=== PATIENT | female | born 1950 | race Caucasian/White ===

== ENCOUNTER 2021-11-03 14:18 | Outpatient (REF) | payer MEDICARE, MEDICAID, SELFPAY ==
[2021-11-03 18:10] LABS: Alanine Aminotransferase 10 U/L (0-31); Albumin Level 4.1 g/dL (3.5-5.0); Alkaline Phosphatase 68 U/L (39-117); Anion Gap 11 (12-20); Aspartate Amino Transferase 19 U/L (5-31); Bilirubin Total 0.7 mg/dL (0.0-1.0); Blood Urea Nitrogen 19 mg/dL (9-16); Calcium 9.5 mg/dL (8.4-10.2); Carbon Dioxide 32 mmol/L (22-29); Chloride 105 mmol/L (96-108); Estimated Glomerular Filt Rate 36; Glucose Random 85 mg/dL (60-115); Potassium 4.9 mmol/L (3.3-5.1); Sodium 143 mmol/L (135-145); Total Protein 6.2 g/dL (6.5-8.0)
[2021-11-03 18:23] LABS: Hematocrit 43.3 % (37.0-47.0); Mean Corpuscular HGB Conc 32.3 g/dl (31.0-35.0); Mean Corpuscular Hemoglobin 33.1 pg (27.0-33.0); Mean Corpuscular Volume 102.4 fL (80.0-98.0); Mean Platelet Volume 11.5 fL (9.4-12.3); Platelet Count 156 X10*3/uL (160-400); Red Blood Count 4.23 X10*6/uL (4.20-5.50); White Blood Count 4.5 X10*3/uL (4.8-10.8)
[2021-11-03 18:29] LABS: Vitamin D 25-OH Total 40.9 ng/mL (>30)
[2021-11-03 18:36] LABS: Vitamin B12 536 pg/mL (200-900)
== END 2021-11-03 14:19 | disposition home or self-care (01) ==
LOC: HO.MANLDS 14:18
PROVIDERS: PCP Internal Medicine; Visit Provider Internal Medicine
DX: I10 Essential (primary) hypertension (principal); Z76.89 Persons encountering health services in other specified circumstances
CPT/HCPCS: 36415; 80053; 82306; 82607; 85027

== ENCOUNTER 2023-09-23 08:38 | Outpatient (REF) | payer MEDICARE, MEDICAID, SELFPAY ==
[2023-09-23 13:13] LABS: MANUAL DIFF FLAG NO
[2023-09-23 13:29] LABS: Basophils Percent Auto 0.6 % (0-2); Eosinophils Absolute Auto 0.2 X10*3/uL (0.0-0.4); Eosinophils Percent Auto 3.2 % (0-4); Hematocrit 45.2 % (37.0-47.0); Hemoglobin 14.5 g/dl (12.0-16.0); Imm Gran Abs Auto 0.01 X10*3/uL (0.00-0.03); Imm Gran Pct Auto 0.2 % (0.0-0.4); Lymphocytes Percent Auto 20.6 % (20-40); Mean Corpuscular HGB Conc 32.1 g/dl (31.0-35.0); Mean Corpuscular Hemoglobin 33.4 pg (27.0-33.0); Mean Corpuscular Volume 104.1 fL (80.0-98.0); Monocytes Absolute Auto 0.4 X10*3/uL (0.1-1.2); Monocytes Percent Auto 8.5 % (2-11); Neutrophils Absolute Auto 3.3 x10*3/uL (2.0-8.3); Neutrophils Percent Auto 66.9 % (45-73); Platelet Count 155 X10*3/uL (160-400); Red Blood Count 4.34 X10*6/uL (4.20-5.50)
[2023-09-23 13:49] LABS: Alanine Aminotransferase 11 U/L (0-31); Albumin Level 4.1 g/dL (3.5-5.0); Alkaline Phosphatase 68 U/L (39-117); Anion Gap 12 (12-20); Aspartate Amino Transferase 20 U/L (5-31); Bilirubin Total 0.8 mg/dL (0.0-1.0); Blood Urea Nitrogen 20 mg/dL (9-16); Calcium 9.8 mg/dL (8.4-10.2); Carbon Dioxide 30 mmol/L (22-29); Chloride 104 mmol/L (96-108); Cholesterol 185 mg/dL (<200); Estimated Glomerular Filt Rate 38; Glucose Random 85 mg/dL (60-115); HDL Cholesterol 76 mg/dL (>40); LDL Cholesterol Calculated 95 mg/dL (<100); Potassium 3.7 mmol/L (3.3-5.1); Sodium 142 mmol/L (135-145); Total Protein 6.5 g/dL (6.5-8.0); Triglycerides 73 mg/dL (<150)
[2023-09-23 14:07] LABS: Vitamin B12 1035 pg/mL (200-900)
== END 2023-09-23 08:39 | disposition home or self-care (01) ==
LOC: HO.MANLDS 08:38
PROVIDERS: Visit Provider Internal Medicine
DX: E53.8 Deficiency of other specified B group vitamins (principal); I10 Essential (primary) hypertension
CPT/HCPCS: 36415; 80053; 80061; 82607; 85025

== ENCOUNTER 2025-02-06 14:26 | Outpatient (REF) | payer MEDICARE, MEDICAID, SELFPAY ==
--- OUTSIDE RECORDS SUMMARY | 2025-02-06 16:36 | XMS_ITS | Data Portability ---
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 2 OUT OF 3 ELEMENTS: PROBLEMS, DATA OR RISK ELEMENT 1: PROBLEMS ADDRESSED 1 OR MORE CHRONIC ILLNESS WITH EXACERBATION OR 2 OR MORE STABLE CHRONIC ILLNESSES OR 1 UNDIAGNOSED NEW PROBLEM OR 1 ACUTE ILLNESS W/SYMPTOMS OR 1 ACUTE COMPLICATED INJURY ELEMENT 2: DATA MUST MEET 1 OF 3 CATEGORIES CATEGORY 1: REVIEW OF PRIOR EXTERNAL NOTES, REVIEW OF RESULTS, ORDERING OF EACH TEST, ASSESSMENT REQUIRING INDEPENDENT HISTORIAN OR CATEGORY 2: INDEPENDENT INTERPRETATION OF TESTS BY ANOTHER PHYSICIAN OR SPECIALIST OR CATEGORY 3: DISCUSSION OF MGT OR TEST INTERPRETATION W/EXTERNAL PHYSICIAN OR SPECIALIST ELEMENT 3: RISK RISK OF COMPLICATIONS AND/OR MORBIDITY OR MORTALITY OF PATIENT MANAGEMENT PROVIDER MUST THOROUGHLY DOCUMENT EACH ELEMENT THAT IS COVERED Not available 11/07/2024 11:23:22 02/06/2025 02/06/2025 [id number] [place] [id number] (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 2 OUT OF 3 ELEMENTS: PROBLEMS, DATA OR RISK ELEMENT 1: PROBLEMS ADDRESSED 1 OR MORE CHRONIC ILLNESS WITH EXACERBATION OR 2 OR MORE STABLE CHRONIC ILLNESSES OR 1 UNDIAGNOSED NEW PROBLEM OR 1 ACUTE ILLNESS W/SYMPTOMS OR 1 ACUTE COMPLICATED INJURY ELEMENT 2: DATA MUST MEET 1 OF 3 CATEGORIES CATEGORY 1: REVIEW OF PRIOR EXTERNAL NOTES, REVIEW OF RESULTS, ORDERING OF EACH TEST, ASSESSMENT REQUIRING INDEPENDENT HISTORIAN OR CATEGORY 2: INDEPENDENT INTERPRETATION OF TESTS BY ANOTHER PHYSICIAN OR SPECIALIST OR CATEGORY 3: DISCUSSION OF MGT OR TEST INTERPRETATION W/EXTERNAL PHYSICIAN OR SPECIALIST ELEMENT 3: RISK RISK OF COMPLICATIONS AND/OR MORBIDITY OR MORTALITY OF PATIENT MANAGEMENT PROVIDER MUST THOROUGHLY DOCUMENT EACH ELEMENT THAT IS COVERED Not available 02/06/2025 14:16:56 Plan of Treatment Reminders Order Date Submit Date Provider Last Modified By Organization Details Last Modified Time Details Appointments FOLLOW UP 2024 01:45P M DR INFANTE Not available Not available Not available Nurse Visit 2024 10:00A M [facility] Not available Not available Not available FOLLOW UP 2024 02:15P M DR INFANTE Not available Not available Not available Lab CMP, serum or plasma 2024 025 [facility], [address] [place] [address], [id number], 02/06/2025 14:24:27 vitamin D, 25-hydrox y, total, serum 2024 025 [facility], [address] [place] [address], [id number], 02/06/2025 14:24:27 CBC w/ auto diff 2024 025 [facility], [address] [place] [address], [id number], 02/06/2025 14:24:27 CBC 2024 025 [facility], [address] [place] [address], [address], 02/06/2025 14:24:49 ferritin, serum or plasma 2024 025 [facility], [address] [place] [address], [address], 02/06/2025 14:24:48 folate, serum 2024 025 [facility], [address] [place] [address], [id number], 02/06/2025 14:24:48 iron + total iron-bind ing capacity (TIBC), serum 2024 025 [facility], [address] [place] [address], [address], 02/06/2025 14:24:48 retic count, blood 2024 025 [facility], [address] [place] [address], [place], [address], 02/06/2025 14:24:48 vitamin B12, serum 2024 025 [facility], [address] [place] [address], [address], 02/06/2025 14:24:48 vitamin B12, serum 2024 025 [facility], [address] [place] [address], [address], 02/06/2025 14:24:27 Referral None recorded. Procedures None recorded. Surgeries None recorded. Imaging MAMMO, screening , digital, bilateral [address] [place] [address] (Screening Mammos, 6-Mos F-Up, Breast Procedures), [address] [place] [address], [id number], 02/06/2025 15:30:09 bone density [address] [place] [address] (Screening Mammos, 6-Mos F-Up, Breast Procedures), [address] [place] [address], [address], 02/06/2025 15:30:09 Medication Orders hydrocodo ne 7.5 mg-acetam inophen 325 mg tablet 2024 025 [facility]/Pharmacy #2024, [address] [place], [address], 02/06/2025 14:18:15 cyanocoba (vit B-12) 1,000 mcg/mL injection solution 2024 025 [facility]/Pharmacy #2024, [address] [place], [address], 01/30/2025 10:22:35 Vitamin B-12 1,000 mcg/mL injection solution 2024 025 [facility]2024, [address] [place], [address], 01/02/2025 09:59:02 Vitamin B-12 1,000 mcg/mL injection solution 2024 025 [facility], [address] [place], [address], 12/03/2024 11:00:06 Patient TargetsNo targets recorded. Patient Instructions Encounter Date Encounter Id Patient Instructions Last Modified By Organization Details Last Modified Time 11/07/2024 [id number] high blood pressure: care instructions Not available 11/07/2024 11:22:26 learning about high blood pressure Not available 11/07/2024 11:22:26 02/06/2025 [id number] mammogram: about this test Not available 02/06/2025 14:23:24 Reason for Referral None Reported. Problems Name Problem SNOMED Code Status Onset Date Resolution Date Notes Provider Name and Address Organization Details Recorded Time Degenera tion of lumbar interver tebral disc and osteophy te of lumbar vertebra 392589374 Completed 201803/09/2019 Harish Infante DO [address] [place] [address], [address], [facility] 9 14:23:47 Degenera tion of lumbar interver tebral disc 92900912 Active 2018 Dinah boykin [facility] 5 08:22:47 Osteoart hritis of knee 998763520 Active 2020 Harish Infante DO [address] [place] [address], [address], [facility] 1 13:47:58 Environm ental allergy 082894327 Active 2017 Dinah boykin [facility] 5 08:22:47 [facility] l hyperten martinez 93348318 Active 2017 [facility] 5 08:22:47 Migraine 60655901 Active 2017 [facility] 5 08:22:47 History of depressi on 373127496 Active 2017 [facility] 5 08:22:47 Gastroes ophageal reflux disease 897823750 Active 2017 [facility] 5 08:22:47 Osteoart hritis 455659863 Active 2017 L shoulder , Knees bilatera l and lumbar spine Dinah Drew [facility] 5 08:22:47 Cataract 174496933 Active 2017 Dinahjennifer Rubin [facility] 5 08:22:47 Osteopen ia 127750517 Active 2017 LS Spine, L hip Dinah Rubin [facility] 5 08:22:47 Hiatal hernia 35669324 Active 2017 Dinahjennifer Rubin [facility] 5 08:22:47 B12 deficien cy monitori ng status 454077932 Active 2017 Dinahjennifer Rubin [facility] 5 08:22:47 Cobalami n deficien cy 072972661 Active 2021 [facility] 5 08:22:47 Gastropa resis syndrome 185932899 Active 2017 Dinahjennifer Rubin [facility] 5 08:22:47 Onychomy cosis 452494994 Active 2021 Harish Infante, DO [address] [place] [address], [place], [address], [facility] 2 14:53:06 Mood disorder 34247284 Active 2022 Dinah boykin, [facility] 5 08:22:47 Acute diarrhea 273110186 Active 2022 Dinah boykin, [facility] 5 08:22:53 Vitamin D deficien cy 10751970 Active 2022 [facility] 5 08:22:47 Osteoart hritis of right knee joint 4758767923 37019 Active 2023 Dinah boykin, [facility] 5 08:22:47 Pneumoni a 471496676 Active 2023 [facility] 5 08:22:53 Atypical pneumoni a 289055135 Active 2023 [facility] 5 08:22:53 Reactive airway disease 1321830174 06 Active 2024 Harish Infante DO [address] [place] [address], [address], [facility] 5 11:20:48 Insomnia 016719588 Active 2017 Not Available [facility] 1 11:19:05 Cellulit is of upper limb 934950771 Active 2017 [facility] 5 08:22:53 Problem Notes None recorded. Procedures Surgical History Date Name Laterality Status Provider Name and Address Organization Details Recorded Time 024 Corticosteroid Injection completed Harish Infante DO [address] [place] [address], [phone], [facility] 09/27/2023 11:08:44 021 Corticosteroid Injection completed Harish Infante DO [address] [place] [address], [address], [facility] 07/06/2021 14:01:24 020 Corticosteroid Injection completed Harish Infante DO [address] [place] [address], [address], [facility] 07/07/2020 15:01:35 020 Corticosteroid Injection completed Harish Infante DO [address] [place], [address], [facility] 12/21/2019 10:31:18 018 Corticosteroid Injection completed Harish Infante DO [address] [place], [address], [facility] 07/24/2018 12:30:11 Imaging Results None recorded. Procedure Notes None recorded. Medical Equipment None Reported. Allergies Allergen ID Allergen Name Allergen Category Reaction Reaction Severity Criticality Documentation Date Start Date Code Code System Note Provider Name and Address Organization Details Recorded Time 84 penicilli n V Not available Not available Not available Not available 10/26/2017 7984 RxNorm [facility] 8 15:05:27 Medications Name Sig Start Date Stop Date Status Note LastModified by Organization Details LastModified Time celecoxib 200 mg capsule TAKE 1 CAPSULE BY MOUTH EVERY DAY active Not Available Not Available No t Available cyclobenzap rine 10 mg tablet TAKE 1 TABLET BY MOUTH THREE TIMES DAILY FOR 10 DAYS 03/16 completed Not Available Not Available Not Available propranolol ER 160 mg capsule,24 hr,extended release TAKE 1 CAPSULE BY MOUTH EVERY DAY 11/07 completed Not Available Not Available Not Available azithromyci n 250 mg tablet Take 1 dose pk by oral route as directed for 5 days. 11/07 completed Not Available Not Available Not Available hydrocodone 5 mg-acetamin ophen 325 mg tablet Take 1 tablet twice a day by oral route. 11/28 completed Not Available Not Available Not Available ondansetron HCl 8 mg tablet TAKE 1 TABLET BY MOUTH TWICE DAILY 06/27 completed Not Available Not Available Not Available meloxicam 15 mg tablet TAKE 1 TABLET BY MOUTH EVERY DAY 02/06 completed Not Available Not Available Not Available metoprolol succinate ER 100 mg tablet,exte nded release 24 hr TAKE 1 TABLET BY MOUTH EVERY DAY active Not Available Not Available No t Available ciprofloxac in 250 mg tablet TAKE 1 TABLET BY MOUTH EVERY 12 HOURS FOR 5 DAYS 06/27 completed Not Available Not Available Not Available sulfamethox azole 800 mg-trimetho prim 160 mg tablet Take 1 tablet every 12 hours by oral route for 10 days. 03/31 completed Not Available Not Available Not Available hydrocodone 10 mg-acetamin ophen 325 mg tablet TAKE 1 TABLET BY MOUTH TWICE DAILY 11/28 completed Not Available Not Available Not Available trazodone 100 mg tablet TAKE 1 TABLET BY MOUTH EVERYDAY AT BEDTIME active Not Available Not Available No t Available hydrocodone 7.5 mg-acetamin ophen 325 mg tablet TAKE 1 TABLET BY MOUTH THRICE DAILY NEEDED (tid prn) 2024 active Not Available Not Available Not Avai lable pantoprazol e 40 mg tablet,jani yed release TAKE 1 TABLET BY MOUTH EVERY DAY active Not Available Not Available No t Available cyanocobala min (vit B-12) 1,000 mcg/mL injection solution Inject 1 mL every month by subcutane ous route. 2024 active Not Available Not Available Not Avai lable lisinopril 10 mg tablet TAKE 1 TABLET BY MOUTH EVERY DAY 03/13 completed Not Available Not Available Not Available triamterene 37.5 mg-hydrochl orothiazide 25 mg tablet TAKE 1 TABLET BY MOUTH EVERY DAY 03/13 completed Not Available Not Available Not Available diclofenac sodium 50 mg tablet,jani yed release Take 1 tablet twice a day by oral route with meals for 10 days. 01/14 completed Not Available Not Available Not Available zolpidem 5 mg tablet Take 1 tablet every day by oral route as needed for 30 days. 06/30 completed Not Available Not Available Not Available Vitamin D3 25 mcg (1,000 unit) capsule Take every day by oral route. active Not Available Not Available No t Available Boostrix Tdap 2.5 Lf unit-8 mcg-5 Lf/0.5 mL intramuscul ar syringe 03/09 completed Not Available Not Available Not Available calcium 1000 mg twice a day. 02/10 completed Not Available Not Available Not Available Shingrix (PF) 50 mcg/0.5 mL intramuscul ar suspension, kit 03/31 completed Not Available Not Available Not Available Vitals Date Recorded Body height Body mass index (BMI) Body weight Heart rate Oxygen saturation Oxygen saturation in Arterial blood by Pulse oximetry Systolic blood pressure Diastolic blood pressure Provider Name and Address Organization Details Last Updated DateTime 5 152.4 cm 36.3 kg/m2 22891.1 8 g 54 /min 94 % 94 % 146 mm[Hg] 82 mm[Hg] Dinah Rubin [facility] 5 10:56:28 Date Recorded Body height Body mass index (BMI) Body weight Oxygen saturation Oxygen saturation in Arterial blood by Pulse oximetry Heart rate Systolic blood pressure Diastolic blood pressure Provider Name and Address Organization Details Last Updated DateTime 5 152.4 cm 36.3 kg/m2 40258.1 8 g 98 % 98 % 51 /min 138 mm[Hg] 74 mm[Hg] Rebeca Bean [facility] 5 14:01:07 Social History Question Answer Notes LastModified by Organizat ion Details LastModified Time Tobacco Smoking Status Never Smoker Not Available [facility] 07/01/2020 03:36:23 What Was The Date Of Your Most Recent Tobacco Screening? 02/06/2025 [email or web address] Information not available 02/06/2025 Sex: Unknown Functional Status Question Answer Note LastModified by Organization D etails LastModified Time Do you or have you ever used any other forms of tobacco or nicotine? No Information not available 11/23/2022 Mental Status None recorded. Family History Nothing Reported. Medical History No medical history recorded. Gynecological HistoryNo gynecological history recorded. Obstetrics History GPAL:G 0 P 0 0 0 0 Immunizations Vaccine Type Date Status Note Provider Nam e and Address Organization Details Recorded Time Influenza, split virus, quadrivalent, preservative 04/22/20 21 completed Harish Infante DO [address] [place] [address], [address], [facility] 04/23/2021 16:56:32 Influenza, split virus, quadrivalent, preservative 05/21/20 18 completed Harish Infante DO [address] [place] [address], [address], [facility] 05/22/2018 06:43:15 COVID-19, mRNA, LNP-S, PF, 100 mcg/0.5mL dose or 50 mcg/0.25mL dose 10/30/19 22 [facility]2021 14:27:42 influenza, unspecified formulation 06/23/20 22 [facility] 08/03/2022 10:05:56 Respiratory syncytial virus (RSV) MAB, unspecified 10/21/19 24 completed Harish Infante, [address] [place] [address], [address], [facility] 10/23/2023 08:54:11 zoster live 01/09/20 18 [facility] 07/24/2018 12:14:34 zoster live 03/19/20 18 [facility] 07/24/2018 12:14:47 Influenza, split virus, quadrivalent, preservative 04/16/20 19 [facility] 04/17/2019 08:10:45 Influenza, split virus, quadrivalent, preservative 05/07/20 20 completed Harish Infante DO [address] [place] [address], [address], [facility] 05/08/2020 14:57:22 COVID-19, mRNA, LNP-S, PF, 30 mcg/0.3 mL dose 12/28/19 21 completed Harish Infante DO [address] [place] [address], [address], [facility] 12/28/2020 14:33:23 Pneumococcal conjugate PCV 13 07/24/20 17 completed Macy boykin [facility] 01/06/2021 14:04:24 Tdap 08/25/20 18 [facility] 01/06/2021 14:04:38 COVID-19, mRNA, LNP-S, PF, 30 mcg/0.3 mL dose 01/19/20 21 [facility] 02/06/2021 11:35:43 pneumococcal polysaccharide PPV23 07/28/20 18 completed Laurie boykin [facility] 02/06/2021 11:36:06 Past Encounters Encounter ID Performer Location Encounter Start Date Encounter Closed Date Diagnosis/Indication Diagnosis SNOMED-CT Code Diagnosis ICD10 Code Diagnosis Note [id number] Harish Francisco Infante [facility] [address] [facility] [address] 12/07/2017 09:21:26 12/07/2017 09:47:13 Cobalamin deficiency 377516876 E53.8 [id number] Harish Infante [facility] [address] [facility] [address] 12/30/2017 13:43:57 12/30/2017 16:39:37 Essential hypertension 35096845 I10 Osteoarthritis 331138816 M19.90 Gastroesop hageal reflux disease 145506647 K21.9 Community acquired pneumonia 820777926 J18.9 given a zpak [id number] Harish Infante [facility] [address] [facility] [address] 01/06/2018 09:27:46 01/06/2018 15:31:19 Cobalamin deficiency 557592950 E53.8 [id number] Harish Infante [facility] [address] [facility] [address] [place] [address] 01/17/2018 13:50:51 01/17/2018 15:55:25 Patellofemoral stress syndrome 323571202 M22.2X2 await insurance changes so we can order either ortho eval or PT eval Essential hypertension 48456794 I10 [id number] Harish Infante [facility] [address] [facility] [address] 02/06/2018 09:29:27 02/06/2018 09:54:40 Cobalamin deficiency 826176741 E53.8 [id number] Harish Infante [facility] [address] [facility] [address] 03/08/2018 09:37:25 03/08/2018 11:21:54 Cobalamin deficiency 440348774 E53.8 [id number] Harish Francisco Infante [facility] [address] [facility] [address] 03/22/2018 13:43:57 03/22/2018 15:11:49 Essential hypertension 53764299 I10 bp os actually quite good and without major prob w meds B12 defici ency monitoring status 241027363 Z76.89 will cont to follow and obtain lab next draw Cellulitis of upper limb 761950646 L03.119 Insomnia 441793033 G47.0 0 trazodone not helping will try prn zolpidem and recheck [id number] Harish MatuteKishore Infante [facility] [address] [facility] [facility] [place] [address] 03/31/2018 14:31:35 03/31/2018 15:49:25 Cellulitis of upper limb 762086159 L03.119 resolved abx finished Intramuscu lar hematoma 429238539 M79.81 will need to cont heat applicatio ns and use diclofenac and hold meloxicam [id number] Harish Infante [facility] [address] [facility] [facility] [place] [address] 04/07/2018 09:28:54 04/07/2018 10:41:41 Cobalamin deficiency 408100022 E53.8 [id number] Harish MatuteKishore Infante [facility] [address] [facility],[place] [address] 05/08/2018 09:28:02 05/08/2018 11:36:15 Cobalamin deficiency 770277100 E53.8 [id number] Harish Francisco Infante [facility] [address] [facility] [address] 05/24/2018 14:26:00 05/24/2018 15:40:01 B12 deficiency monitoring status 555885018 Z76.89 will cont to follow and obtain lab next draw Essential hypertension 12777803 I10 bp os actually quite good and without major prob w meds Osteoarthritis 850984175 M19.90 Adult heal th examination 945556873 Z00.01 Screening for osteoporosis 947402386 Z13.820 states will consider Screening mammography 24 611952 Z12.31 Fracture of clavicle 581 91398 S42.002A Degenerati on of lumbar intervertebral disc 35881574 M51.36 [id number] Harish Ordonezellie [facility] [address] [address] 06/07/2018 09:27:17 06/07/2018 14:02:19 Cobalamin deficiency 014543378 E53.8 [id number] Harish Ordonezellie [facility] [address] [facility], [place] [address] 06/12/2018 14:55:00 06/12/2018 16:11:38 Insomnia 952430221 G47.00 trazodone not helping will try prn zolpidem and recheck Closed fra cture of clavicle 64681372 S42.002D cont her treatment and will provide a sling for comfort [id number] Harish Ordonezellie [facility] [address], [place] [address] 06/23/2018 13:29:00 06/23/2018 14:47:02 Closed fracture of clavicle 39536738 S42.002D cont her treatment and will provide a sling for comfort Traumatic hematoma 22564 9004 T14.8XXA heat applied and elevate [id number] Harish Ordonezellie [facility] [address], [place] [address] 07/07/2018 09:26:45 07/07/2018 13:03:17 [id number] Harish Ordonezellie [facility] [address], [place] [address] 07/11/2018 15:54:29 07/12/2018 09:20:57 Hepatitis C screening 972313978 Z11.59 Insomnia 349100538 G47.0 0 trazodone not helping will try prn zolpidem and recheck B12 defici ency monitoring status 208348428 Z76.89 will cont to follow and obtain lab next draw needs new rx for [facility] Clavicle pain 798919230 M25.519 [id number] Harish Infante [facility] [address] [facility],[place] [address] 07/24/2018 12:10:57 07/24/2018 15:05:04 Osteoarthritis of shoulder region 41528371 M19.019 left shoulder is in great deaal of pain joint injected as noted and pt tolerated well [id number] Harish Infante [facility] [address] [place] [address] 08/07/2018 09:07:04 08/07/2018 16:57:46 Cobalamin deficiency 031589907 E53.8 [id number] Harish Infante [facility] [address] [address] 09/06/2018 09:27:50 09/06/2018 19:56:47 Cobalamin deficiency 095054828 E53.8 [id number] Harish Infante [facility] [address] [address] 10/06/2018 09:24:41 10/06/2018 09:55:24 Cobalamin deficiency 041690591 E53.8 [id number] Harish Infante [facility] [address] [address] 11/06/2018 09:55:13 11/06/2018 10:08:59 Cobalamin deficiency 161137081 E53.8 [id number] Harish Infante [facility] [address] [address] 11/17/2018 13:29:39 11/17/2018 15:25:14 Essential hypertension 53819487 I10 bp os actually quite good and without major prob w meds Lumbago with sciatica 20 9989799 M54.42 worrisome for poss sacroillit is or even compressio n of lumbar vert will need xr and pain control [id number] Harish Infante [facility] [address] [facility],[place] [address] 12/01/2018 12:06:27 12/01/2018 12:32:44 Degeneration of lumbar intervertebral disc 90299862 M51.36 has evid of severe deg disc ds and worsening pain [id number] Harish Infante [facility] [address] [place] [address] 12/06/2018 09:24:36 12/06/2018 12:21:27 Cobalamin deficiency 528870350 E53.8 [id number] Harish Infante [facility] [address] [facility] [address] 12/15/2018 09:09:55 12/15/2018 11:16:31 Patellofemoral stress syndrome [id number] M22.2X2 await insurance changes so we can order either ortho eval or PT eval Degenerati ve lumbar spinal stenosis 707949954 M48.061 long detailed discussion re MRI revealing her multilevel deg disc disease and evid of fora rehan impingemen t bilat will use hydrocod prn she is using the med very cautiously and only on severe pain episodes not taking every day given the multi level disease she is not a candidate for a corrective procedure encouraged to keep moving and to stay as active as she possibly can Harish Infante [facility] [address] [place] [address] 01/05/2019 09:26:55 01/05/2019 15:59:01 Cobalamin deficiency 692650563 E53.8 [id number] Harish Infante [facility] [address] [facility],[place] [address] 02/05/2019 09:40:33 02/05/2019 10:06:28 Cobalamin deficiency 045245977 E53.8 [id number] Harish Infante [facility] [address] [place] [address] 03/07/2019 09:42:28 03/07/2019 12:47:21 Cobalamin deficiency 674760505 E53.8 [id number] Harish Infante [facility] [address] [facility], [place] [address] 03/09/2019 13:54:22 03/09/2019 14:54:05 Insomnia 846548059 G47.00 trazodone not helping tried zolpidem and this has helped using this med sporadical ly only B12 defici ency monitoring status 888659272 Z76.89 will cont to follow and obtain lab next draw needs new rx for VIOSO having a hard time getting filled now will need to get blood eval in 3 weeks just had dose 2 days ago and chk level for effectiven ess Essential hypertension 18740608 I10 bp os actually quite good and without major prob w meds Degenerati on of lumbar intervertebral disc 29661339 M51.36 has evid of severe deg disc ds and worsening pain has evid of evolv stenosis as well will discuss with pharmacy as she needs to cont the pain med uses about once or twice at the most Edema of l ower extremity 899795536 R60.0 is she doesnt cut back on salt intake we will have to begin a diuretic [id number] Harish Infante [facility] [address] [facility],[place] [address] 04/06/2019 09:44:59 04/06/2019 10:42:02 Cobalamin deficiency 215085084 E53.8 [id number] Harish Infante [facility] [address] [facility], ite [facility] [place] [address] 04/16/2019 13:53:59 04/16/2019 15:35:35 Essential hypertension 06222052 I10 bp os actually quite good and without major prob w meds Hematoma of lower leg 44 3851151 S80.12XA hematoma will be treated with heat and etodolac [id number] Harish Infante [facility] [address] [facility], [place] [address] 05/07/2019 09:44:27 05/07/2019 09:57:10 Cobalamin deficiency 884266088 E53.8 [id number] Harish Infante [facility] [address] [facility], [place] [facility] [place] [address] 06/06/2019 09:44:42 06/06/2019 14:20:37 Cobalamin deficiency 725010248 E53.8 [id number] Harish Singh Aleshia [facility] [address] [facility] [address],[place] [address] 07/06/2019 09:45:29 07/06/2019 11:15:35 Cobalamin deficiency 222586516 E53.8 [id number] Harish Singh Aleshia [facility] [address] [facility] [address],[place] [address] 08/06/2019 09:46:19 08/06/2019 09:54:30 Cobalamin deficiency 758614628 E53.8 [id number] Harish Singh Aleshia [facility] [address] [facility] [address],[place] [facility] [place] [address] 09/07/2019 09:26:13 09/07/2019 09:33:15 Cobalamin deficiency 596424986 E53.8 [id number] Harish Francisco Infante [facility] [address] [facility] [address],[place] [facility] [place] [address] 09/11/2019 14:11:48 09/11/2019 14:44:49 Essential hypertension 42753687 I10 bp os actually quite good and without major prob w meds will cont to monitor Osteoarthritis 098051777 M19.90 severe pain in her knees hurts to ambulate any signif distance Degenerati on of lumbar intervertebral disc 32675077 M51.36 has evid of severe deg disc ds and worsening pain has evid of evolv stenosis as well will discuss with pharmacy as she needs to cont the pain med uses about once or twice at the most [id number] Harish Infante [facility] [address] [facility] [address],[place] [address] 10/08/2019 09:45:13 10/08/2019 16:37:41 Cobalamin deficiency 830076645 E53.8 [id number] Harish Infante [facility] [address] [facility] [address],[place] [address] 11/07/2019 09:44:47 11/07/2019 10:00:20 Cobalamin deficiency 797533824 E53.8 [id number] Harish Singh Aleshia [facility] [address] [facility],[place] [address] 12/10/2019 09:45:55 12/10/2019 10:20:42 Cobalamin deficiency 236575127 E53.8 [id number] Harish Singh Aleshia [facility] [address] [place] [address] 12/14/2019 09:43:11 12/14/2019 10:18:37 Essential hypertension 75590560 I10 bp os actually quite good and without major prob w meds will cont to monitor Gastroesop hageal reflux disease 048277556 K21.9 stable as long as she takes her pantoprazo le Insomnia 123753155 G47.0 0 trazodone not helping tried zolpidem and this has helped using this med sporadical ly only Migraine 74483327 G43.90 9 no episodes for several years now Osteoarthritis 835596849 M19.90 severe pain in her knees hurts to ambulate any signif distance will order a kenalog for inj Vitamin D deficiency 347 16825 E55.9 [id number] Harish Infante [facility] [address] [facility],[place] [address] 12/21/2019 10:12:34 12/21/2019 10:44:45 Osteoarthritis of left knee joint 5781566211 58774 M17.12 jose luis inj well tolerated [id number] Harish Infante [facility] [address] [facility],[place] [address] 01/09/2020 09:43:05 01/09/2020 12:27:51 Cobalamin deficiency 537219550 E53.8 [id number] Harish MatuteKishore Infante [facility] [address] [place] [address] 01/15/2020 10:29:22 01/15/2020 11:05:07 Adult health examination 452039768 Z00.01 will need review Degenerati on of lumbar intervertebral disc 53639268 M51.36 has evid of severe deg disc ds and worsening pain has evid of evolv stenosis as well will discuss with pharmacy as she needs to cont the pain med uses about once or twice at the most [id number] Harish Infante DO [facility] [address] [place] [address],[place] [address] 02/11/2020 09:43:52 02/11/2020 09:59:31 Cobalamin deficiency 069154283 E53.8 [id number] Harish Infante [facility] [address], [place] [address] 03/12/2020 09:43:47 03/12/2020 10:57:02 Cobalamin deficiency 642197926 E53.8 [id number] Harish Infante [facility] [address], [place] [address] 03/25/2020 13:58:24 03/25/2020 14:35:46 Degeneration of lumbar intervertebral disc 17006387 M51.36 has evid of severe deg disc ds and worsening pain has evid of evolv stenosis as well will need to see if she can get more doses in a month will discuss with pharmacy as she needs to cont the pain med uses about once or twice at the most Insomnia 028900895 G47.0 0 trazodone not helping tried zolpidem and this has helped using this med sporadical ly only Essential hypertension 95694366 I10 bp is actually quite good and without major prob w meds will cont to monitor Gastroesop hageal reflux disease 139566904 K21.9 stable as long as she takes her pantoprazo le [id number] Harish Infante [facility] [address] [facility],[place] [address] 04/11/2020 09:29:44 04/11/2020 10:23:00 Cobalamin deficiency 293386109 E53.8 [id number] Harish Infante [facility] [address] [place] [address],[place] [facility] [place] [address] 05/12/2020 09:46:59 05/12/2020 14:52:03 Cobalamin deficiency 926261762 E53.8 [id number] Harish Infante DO [facility] [address] [facility],[place] [address] 06/11/2020 09:45:29 06/11/2020 10:03:22 Cobalamin deficiency 220333889 E53.8 [id number] Harish Singh Aleshia [facility] [address] [facility],[place] [facility] [address] 06/25/2020 13:33:25 06/25/2020 14:21:43 Essential hypertension 51466710 I10 bp is actually quite good and without major prob w meds will cont to monitor Osteoarthritis 600586912 M19.90 severe pain in her knees hurts to ambulate any signif distance Osteopenia 993850065 M85 .80 aboutthe same Degenerati on of lumbar intervertebral disc 59801837 M51.36 has evid of severe deg disc ds and worsening pain has evid of evolv stenosis as well will need to see if she can get more doses in a month will discuss with pharmacy as she needs to cont the pain med uses about once or twice at the most Insomnia 494515133 G47.0 0 trazodone not helping tried zolpidem and this has helped using this med sporadical ly only B12 defici ency monitoring status 077471578 Z76.89 will cont to follow and obtain lab next draw needs new rx for [employer] [facility] having a hard time getting filled now will need to get blood eval in 3 weeks just had dose 2 days ago and chk level for effectiven ess Mood disorder 94590341 F 39 [id number] Harish Infante [facility] [address] [facility] [address],[place] [address] 07/07/2020 14:55:46 07/07/2020 15:13:58 Osteoarthritis 271095778 M19.90 severe pain in her knees hurts to ambulate any signif distance tolerated jose [place]uis [place] [id number] Harish Infante [facility] [address] [facility] [address],[place] [address] 07/11/2020 09:28:20 07/11/2020 09:40:19 Cobalamin deficiency 591480149 E53.8 [id number] Harish Infante [facility] [address] [facility],[place] [address] 08/19/2020 10:30:08 08/19/2020 10:49:17 Cobalamin deficiency 645131976 E53.8 [id number] Harish Infante [facility] [address] [facility],[place] [address] 10/01/2020 14:01:04 10/01/2020 14:47:48 Cobalamin deficiency 608411101 E53.8 [id number] Harish Infante [facility] [address] [facility],[place] [address] 10/28/2020 14:57:15 10/28/2020 16:18:21 Essential hypertension 79075038 I10 bp is actually quite good and without major prob w meds will cont to monitor Gastroesop hageal reflux disease 036656484 K21.9 stable as long as she takes her pantoprazo le B12 defici ency monitoring status 708725660 Z76.89 will cont to follow and obtain lab next draw needs new rx for VIOSO having a hard time getting filled now will need to get blood eval in 3 weeks just had dose 2 days ago and chk level for effectiven ess Screening mammography 24 831260 Z12.31 Osteoarthritis 331953056 M19.90 severe pain in her knees hurts to ambulate any signif distance tolerated jose luis inj Degenerati on of lumbar intervertebral disc 86942154 M51.36 has evid of severe deg disc ds and worsening pain has evid of evolv stenosis as well will need to see if she can get more doses in a month will discuss with pharmacy as she needs to cont the pain med uses about once or twice at the most [id number] Harish Ordonezellie [facility] [address] [facility] [address],[place] [address] 10/31/2020 13:57:04 10/31/2020 16:01:16 Cobalamin deficiency 420141917 E53.8 [id number] Harish Ordonezellie [facility] [address] [facility],[place] [address] 11/28/2020 13:28:30 11/28/2020 14:35:13 Degeneration of lumbar intervertebral disc 92767968 M51.36 has evid of severe deg disc ds and worsening pain has evid of evolv stenosis as well will need to see if she can get more doses in a month will discuss with pharmacy as she needs to cont the pain med uses about once or twice at the most Essential hypertension 95762327 I10 bp is actually quite good and without major prob w meds will cont to monitor taking 160 propranolo l will try to get her a bp cuff for home [id number] Harish Infante [facility] [address] [facility] [address],[place] [facility] [place] [address] 12/01/2020 11:13:29 12/01/2020 11:31:15 Cobalamin deficiency 118341023 E53.8 [id number] Harish Infante [facility] [address] [facility],[place] [facility] [place] [address] 12/31/2020 10:28:20 12/31/2020 15:04:12 Cobalamin deficiency 433285509 E53.8 [id number] Harish Infante [facility] [address] [facility],[place] [facility] [place] [address] 01/09/2021 10:28:17 01/09/2021 14:42:16 Essential hypertension 54882682 I10 home bp is still sl elevated and noted to have ankle edema [id number] Harish Infante [facility] [address] [facility],[place] [address] 02/02/2021 10:27:12 02/02/2021 10:42:11 Cobalamin deficiency 873217384 E53.8 [id number] Harish Infante [facility] [address] [facility],[place] [address] 02/10/2021 14:25:07 02/10/2021 15:10:55 Essential hypertension 15966677 I10 home bp is still sl elevated and noted no longer has edema but wondering if she is having belly upset from the dyazide,,, , this will be held but home bp s are excellent Insomnia 237891879 G47.0 0 trazodone not helping tried zolpidem and this has helped using this med sporadical ly only Nausea, vo miting and diarrhea 2375366 R11.2 believe this is from one of her meds she will stop the calcium and stop the dyazide wait a few days if still trouble she will stop the meloxicam after a few days if still trouble she will call me [id number] Harish Infante [facility] [address] [facility],[place] [facility] [place] [address] 03/06/2021 10:27:24 03/06/2021 14:55:07 Cobalamin deficiency 945084752 E53.8 [id number] Harish Infante [facility] [address] [facility],[place] [address] 03/13/2021 13:28:42 03/13/2021 14:35:21 Mood disorder 42106684 F39 seems to be stable at this time her chronic badk and knee pain has been an issue however Renewal of prescription 420465631 Z76.0 using hydrocodon e only once or twice a day at most Essential hypertension 38128959 I10 home bp is still sl elevated and noted no longer has edema but wondering if she is having belly upset from the lisinopril too,,,, this will be held and we will cont the propranolo l as iscont home bp monitoring but home bp s are excellent Insomnia G47.0 0 trazodone1 00 helping tried zolpidem and this has helped using this med sporadical ly only [id number] Harish Infante [facility] [address] [facility],[place] [address] 04/08/2021 10:29:20 04/08/2021 10:40:00 Cobalamin deficiency 664940150 E53.8 [id number] Harish Infante [facility] [address] [facility],[place] [address] 05/11/2021 10:49:17 05/15/2021 12:20:20 Cobalamin deficiency 554723796 E53.8 [id number] Harish Singh Aleshia [facility] [address] [facility],[place] 7 06/15/2021 10:27:47 06/15/2021 11:48:00 Cobalamin deficiency 949555839 E53.8 [id number] Harish Singh Aleshia [facility] [address] [facility],[place] 7 06/30/2021 13:26:05 06/30/2021 14:27:49 Essential hypertension 16030146 I10 home bp isnow very good and noted no longer has edema from the lisinopril too,,,, this will be held we will cont the propranolo l as iscont home bp monitoring but home bp s are excellent as oer readings brought in dating from february to present Degenerati on of lumbar intervertebral disc 69286495 M51.36 has evid of severe deg disc ds and worsening pain has evid of evolv stenosis as well and right now there is no obvious operable region will discuss with pharmacy as she needs to cont the pain med Osteoarthr itis of knee 745566278 M17.9 both knees are affected but her left is clearly worse than her rioght will order Kenalog for inj and get appt next week B12 defici ency monitoring status 066101437 Z76.89 will cont to follow and obtain lab next draw needs new rx for [employer] [facility] having a hard time getting filled now will need to get blood eval in 3 weeks just had dose 2 days ago and chk level for effectiven ess Vitamin B1 2 deficiency (non anemic) 08339219 E53.8 [id number] Harish Singh Aleshia [facility] [address] [facility] [address],[place] 7 07/06/2021 13:53:22 07/06/2021 15:16:22 Osteoarthritis of knee 368664564 M17.9 both knees are affected but her left is clearly worse than her right we will provide cor tinj today well tolerated [id number] Harish Francisco Infante [facility] [address] [facility] [address],[place] [address] 07/15/2021 09:56:04 07/15/2021 10:46:47 Cobalamin deficiency 431190730 E53.8 [id number] Harish Infante [facility] [address] [facility],[place] [address] 11/03/2021 13:59:04 11/04/2021 10:03:24 Mood disorder 94756095 F39 seems to be stable at this time her chronic badk and knee pain has been an issue however Essential hypertension 09114086 I10 home bp isnow very good and noted no longer has edema from the lisinopril too,,,, this will be held we will cont the propranolo l as iscont home bp monitoring but home bp s are excellent as oer readings brought in dating from february to present Gastroesop hageal reflux disease 845111551 K21.9 stable as long as she takes her pantoprazo le B12 defici ency monitoring status 271797361 Z76.89 will cont to follow and obtain lab next draw needs new rx for VIOSO having a hard time getting filled now will need to get blood eval in 3 weeks just had dose 2 days ago and [place] [id number] Harish Infante [facility] [address] [facility],[place] [address] 11/06/2021 10:54:21 11/09/2021 16:08:26 Cobalamin deficiency 589343494 E53.8 [id number] Harish Infante [facility] [address] [facility],[place] [address] 12/09/2021 10:28:14 12/09/2021 10:38:31 Cobalamin deficiency 321724317 E53.8 [id number] Harish Infante [facility] [address] [place] [address] 01/08/2022 10:25:41 01/08/2022 10:56:19 Cobalamin deficiency 966253774 E53.8 [id number] Harish Infante [facility] [address],[place] [address] 02/08/2022 10:31:21 02/08/2022 11:30:13 Cobalamin deficiency 180005143 E53.8 [id number] Harish Infante [facility] [address] [facility],[place] [address] 03/12/2022 10:31:02 03/12/2022 12:10:24 Cobalamin deficiency 030293123 E53.8 [id number] Harish Infante [facility] [address] [facility],[place] [address] 03/30/2022 15:42:15 03/30/2022 16:22:28 Essential hypertension 79373179 I10 home bp is now very good and noted no longer has edema from the lisinopril too,,,, this will be held we will cont the propranolo l as iscont home bp monitoring but home bp s are excellent as oer readings brought in dating from february to present Degenerati on of lumbar intervertebral disc 30458921 M51.36 has evid of severe deg disc ds and worsening pain has evid of evolv stenosis as well and right now there is no obvious operable region will discuss with pharmacy as she needs to cont the pain med Depression screening 171 608692 Z13.31 PHQ2 negative today- patient doing ok Gastroesop hageal reflux disease 575695502 K21.9 stable as long as she takes her pantoprazo le [id number] Harish Infante [facility] [address] [facility],[place] [address] 04/12/2022 10:28:33 04/12/2022 14:32:21 Cobalamin deficiency 070065010 E53.8 [id number] Harish Infante [facility] [address] [facility],[place] [address] 05/12/2022 10:57:25 05/12/2022 14:42:11 Cobalamin deficiency 462685709 E53.8 [id number] Harish Infante [facility] [address] [facility],[place] [address] 06/14/2022 10:55:31 06/14/2022 14:27:15 Cobalamin deficiency 080237647 E53.8 [id number] Harish Inafnte [facility] [address] [facility] [place] [address] 07/14/2022 10:27:59 07/14/2022 10:32:33 Cobalamin deficiency 366159739 E53.8 [id number] Harish Infante [facility] [address] [facility],[place] [address] 08/04/2022 14:27:54 08/04/2022 15:13:55 Essential hypertension 50383464 I10 home bp continues to be very good and noted no longer has edema from the lisinopril too,,,, this will be held we will cont the propranolo l as iscont home bp monitoring but home bp s are excellent as oer readings brought in dating from february to present Osteoarthritis 296916854 M19.90 severe pain in her knees hurts to ambulate any signif distance tolerated jose luis inj but did not help too much the last injection in left knee Gastroesop hageal reflux disease 109737881 K21.9 stable as long as she takes her pantoprazo le Degenerati on of lumbar intervertebral disc 46204116 M51.36 has evid of severe deg disc ds and worsening pain has evid of evolv stenosis as well and right now there is no obvious operable region will discuss with pharmacy as she needs to cont the pain med and we will provide hydrocod bid and extra if needed x1 during night Onychomycosis [id number] B35.1 seen by podiatry given formula 3 and vicks to treat told her if this did not work to let abel [place] [id number] Harish Infante [facility] [address] [facility] [address],[facility] [place] [address] 08/13/2022 10:29:43 08/13/2022 15:22:58 Cobalamin deficiency 227517937 E53.8 [id number] Harish Infante [facility] [address] [facility],[place] [address] 09/15/2022 09:56:45 09/15/2022 14:05:45 Cobalamin deficiency 747966335 E53.8 [id number] [facility] [address],[place] [address] 10/15/2022 10:11:36 10/15/2022 13:38:45 Cobalamin deficiency 497896744 E53.8 [id number] Harish Singh Aleshia [facility] [address],[place] [address] 11/19/2022 10:12:55 11/19/2022 13:42:14 Cobalamin deficiency 399515649 E53.8 [id number] [facility] [address] [facility],[place] [address] 11/23/2022 13:30:25 11/23/2022 14:00:09 Essential hypertension 34920380 I10 home bp continues to be very good but has some elevated readings in early afternoon {from PRIOR: and noted no longer has edema from the lisinopril too,,,, this will be held we will cont the propranolo l as is}cont home bp monitoring but home bp s are excellent as her readings brought in dating from february to present Mood disorder 25528347 F 41 seems to be stable at this time her chronic badk and knee pain has been an issue however Osteoarthritis 705545197 M19.90 severe pain in her knees hurts to ambulate any signif distance tolerated jose luis inj but did not help too much the last injection in left knee Gastroesop hageal reflux disease 713752874 K21.9 stable as long as she takes her pantoprazo le Renewal of prescription 682702643 Z76.0 using hydrocodon e only once or twice a day at most [id number] [facility] [address],[place] [address] 12/20/2022 10:15:55 12/20/2022 11:18:38 Cobalamin deficiency 969116684 E53.8 [id number] Harish Infante [facility] [address],[place] [facility] [place] [address] 01/19/2023 10:12:48 01/19/2023 14:46:20 Cobalamin deficiency 544989302 E53.8 [id number] Harish Infante [facility] [address],[place] [address] 02/18/2023 09:58:37 02/18/2023 10:35:58 Cobalamin deficiency 186011741 E53.8 [id number] Harish Infante [facility] [address],[place] [facility] [place] [address] 03/16/2023 14:15:45 03/16/2023 16:17:32 Acute diarrhea 541589301 R19.7 getting worse clinically , not eating not drinking told her she must drink will give her zofran for this and also given worsening diarrhea and poss food bourne etiology in this hot weather Degenerati on of lumbar intervertebral disc 68289965 M51.36 has evid of severe deg disc ds and worsening pain has evid of evolv stenosis as well and right now there is no obvious operable region will discuss with pharmacy as she needs to cont the pain med and we will provide hydrocod bid and extra if needed x1 during night [id number] Harish Infante [facility] [address],[place] [facility] [place] [address] 03/21/2023 09:45:27 03/21/2023 11:53:01 Cobalamin deficiency 180347525 E53.8 [id number] Harish Infante [facility] [address] [address],[place] [address] 04/20/2023 09:46:28 04/20/2023 10:03:53 Cobalamin deficiency 410674638 E53.8 [id number] Harish Infante [facility] [address],[place] [address] 05/20/2023 09:46:46 05/20/2023 10:33:57 Cobalamin deficiency 916232886 E53.8 [id number] Harish MatuteKishore Infante, [facility] [address] [facility] [address],[place] [address] 06/27/2023 13:42:22 06/27/2023 14:20:52 Essential hypertension 51453037 I10 home bp continues to be very good but has some elevated readings in early afternoon {from PRIOR: and noted no longer has edema from the lisinopril too,,,, this will be held we will cont the propranolo l as is}cont home bp monitoring but home bp s are excellent as her readings brought in dating from february to present Vitamin D deficiency 347 96753 E55.9 [id number] Harish MatuteKishore Infante [facility] [address] [facility] [address],[place] [address] 06/20/2023 09:27:32 06/20/2023 10:38:11 Cobalamin deficiency 036820695 E53.8 [id number] Harish Singh Aleshia [facility] [address] [facility] [address],[place] [address] 07/25/2023 10:27:23 07/25/2023 11:41:00 Cobalamin deficiency 202540549 E53.8 [id number] Harish Singh Aleshia [facility] [address] [facility],[place] [address] 09/14/2023 09:46:31 09/14/2023 10:27:45 Cobalamin deficiency 929807802 E53.8 [id number] Harish Singh Aleshia, [facility] [address] [facility] [address],[place] [address] 09/21/2023 13:57:53 09/21/2023 14:41:05 Mood disorder 73397371 F39 seems to be stable at this time her chronic badk and knee pain has been an issue however Cobalamin deficiency 190 541983 E53.8 will cont Essential hypertension 03054300 I10 bp has slowly been increasing see home readings we neo have to change propranolo l to metoprolol 100 and rechk in a month or so Osteoarthr itis of right knee joint 6919957442 10302 M17.11 cortisone ordered for appt Gastroesop hageal reflux disease 803523003 K21.9 stable as long as she takes her pantoprazo le Renewal of prescription 661741700 Z76.0 using hydrocodon e only once or twice a day at most Degenerati on of lumbar intervertebral disc 69465409 M51.36 has evid of severe deg disc ds and worsening pain has evid of evolv stenosis as well and right now there is no obvious operable region will discuss with pharmacy as she needs to cont the pain med and we will provide hydrocod bid and extra if needed x1 during night [id number] Harish Infante [facility] [address],[facility] [place] [address] 09/27/2023 10:44:05 09/27/2023 14:37:05 Osteoarthritis of right knee joint 5254381526 69049 M17.11 cortisone inj well amelia [id number] Harish Infante [facility] [address], [place] [address] 10/14/2023 09:53:20 10/14/2023 14:23:54 [id number] Harish Infante [facility] [address], [place] [address] 11/14/2023 09:57:58 11/14/2023 11:04:51 Cobalamin deficiency 885514622 E53.8 will cont [id number] Harish Infante [facility] [address] [facility], [place] [address] 12/14/2023 09:44:31 12/14/2023 09:55:58 Cobalamin deficiency 845551287 E53.8 [id number] Harish Infante [facility] [address], [place] [address] 01/03/2024 14:58:40 01/04/2024 08:09:35 Osteoarthritis of right knee joint 4985787680 75927 M17.11 cortisone inj well amelia Depression screening 171 532162 Z13.31 PHQ2 negative today- patient doing ok Essential hypertension 16018257 I10 bp has slowly been increasing see home readings we neo have to change propranolo l to metoprolol 100 and rechk in a month or so Gastroesop hageal reflux disease 886750109 K21.9 stable as long as she takes her pantoprazo le History of depression 16 7343656 Z86.59 [id number] Harish Infante [facility] [address],[place] [address] 01/16/2024 10:00:27 01/16/2024 14:09:05 Cobalamin deficiency 442954016 E53.8 will cont [id number] Harish Infante [facility] [address],[place] [address] 02/20/2024 09:59:18 02/20/2024 11:05:29 Cobalamin deficiency 570699669 E53.8 will cont [id number] Harish Infante [facility] [address],[place] [address] 03/21/2024 09:44:45 03/21/2024 13:40:55 Cobalamin deficiency 996831935 E53.8 will cont [id number] [facility] [address] [facility],[place] [address] 04/17/2024 15:25:06 04/17/2024 15:50:53 Depression screening 341675593 Z13.31 PHQ2 negative today- patient doing ok Degenerati on of lumbar intervertebral disc 42558066 M51.36 has evid of severe deg disc ds and worsening pain has evid of evolv stenosis as well and right now there is no obvious operable region will discuss with pharmacy as she needs to cont the pain med and we will provide hydrocod bid and extra if needed x1 during night Renewal of prescription 601555433 Z76.0 using hydrocodon e only once or twice a day at most Essential hypertension 95597931 I10 bp has slowly been increasing see home readings we neo have to change propranolo l to metoprolol 100 and rechk in a month or so Gastroesop hageal reflux disease 359873627 K21.9 stable as long as she takes her pantoprazo le Vitamin D deficiency 347 17277 E55.9 [id number] Harish Infante [facility] [address] [facility] [address],[place] [address] 04/18/2024 09:56:07 04/18/2024 10:03:06 Cobalamin deficiency 914995729 E53.8 will cont [id number] Harish Infante [facility] [address] [facility] [address],[place] [address] 05/23/2024 10:31:43 05/23/2024 11:43:27 Cobalamin deficiency 058442195 E53.8 will cont [id number] Harish Infante [facility] [address],[place] 7 06/22/2024 09:55:39 06/22/2024 15:44:30 Vitamin D deficiency 78435632 E55.9 Disorder o f vitamin B12 922938638 E53.8 Cobalamin deficiency 190 779030 E53.8 will cont [id number] [facility] [address] [facility],[place] 7 07/20/2024 13:55:38 07/20/2024 14:33:13 Essential hypertension 50933832 I10 bp has slowly been increasing see home readings we neo have to change propranolo l to metoprolol 100 and rechk in a month or so Osteoarthritis 224381323 M19.90 severe pain in her knees hurts to ambulate any signif distanceha ving pain in her hands and also in her knees and back and hips tolerated jose luis inj but did not help too much the last injection in left knee Gastroesop hageal reflux disease 260246995 K21.9 stable as long as she takes her pantoprazo le [id number] Harish Infante [facility] [address] [facility] [address],[place] [address] 07/23/2024 09:57:25 07/23/2024 10:12:50 Cobalamin deficiency 156257951 E53.8 will cont [id number] Harish Infante [facility] [address],[place] [address] 08/20/2024 11:18:12 08/20/2024 12:02:38 Atypical pneumonia 983663828 J18.9 Essential hypertension 48326548 I10 bp is much better with metoprolol cont cutrrent med PRIOR: abp has slowly been increasing see home readings we neo have to change propranolo l to metoprolol 100 and rechk in a month or so [id number] Harish Infante [facility] [address] [facility],[place] [address] 08/27/2024 09:29:56 08/27/2024 09:52:33 Cobalamin deficiency 208301201 E53.8 [id number] Harish Infante [facility] [address],[place] [address] 09/28/2024 09:45:03 09/28/2024 14:17:49 Cobalamin deficiency 447795502 E53.8 [id number] Harish MatuteKishore Infante [facility] [address],[place] [address] 10/29/2024 09:56:36 10/29/2024 10:39:57 Cobalamin deficiency 519643597 E53.8 [id number] Harish Infante [facility] [address],[place] [address] 11/07/2024 10:48:00 11/07/2024 13:57:40 Depression screening 989678104 Z13.31 PHQ2 negative today- patient doing ok Degenerati on of lumbar intervertebral disc 26243314 M51.369 doing about the same Essential hypertension 65600272 I10 bp is much better with metoprolol cont cutrrent medreviewe d dana e readings actually doing well overallPRI OR: abp has slowly been increasing see home readings we neo have to change propranolo l to metoprolol 100 and rechk in a month or so Cobalamin deficiency 190 193242 E53.8 cont b12 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 we will try stiolto respimat [id number] Harish Singh Aleshia, [facility] [address],[place] [address] 12/03/2024 10:00:56 12/03/2024 10:29:53 Cobalamin deficiency 651910609 E53.8 cont b12 [id number] Harish Singh Aleshia [facility] [address] [facility],[place] 7 01/02/2025 09:42:48 01/02/2025 11:33:05 Cobalamin deficiency 797079294 E53.8 cont b12 [id number] Harish Singh Aleshia, [facility] [address],[place] 7 02/06/2025 13:44:25 02/06/2025 15:30:09 Depression screening 054937445 Z13.31 PHQ2 negative today- patient doing ok Essential hypertension 41033163 I10 bp is much better with metoprolol cont cutrrent medreviewe d dana e readings actually doing well overallPRI OR: abp has slowly been increasing see home readings we neo have to change propranolo l to metoprolol 100 and rechk in a month or so Cobalamin deficiency 190 421611 E53.8 cont b12 Mood disorder 47368986 F 41 seems to be stable at this time her chronic badk and knee pain has been an issue however Reactive a irway disease 0694650674 06 J45.909 we will try stiolto respimat Degenerati on of lumbar intervertebral disc 86585301 M51.369 doing about the same Screening mammography 24 117292 Z12.31 Osteopenia 327963266 M85 .80 need s bdm [id number] [facility] [address] [facility],[place] 7 01/30/2025 09:47:50 01/30/2025 13:57:38 Cobalamin deficiency 660416645 E53.8 cont b12 Health Concerns Section Related Observation LastModified by Organization Detai ls LastModified Time None Recorded Concern Status LastModified by Organization Details LastModified Time None Recorded Advance Directives Directive None Recorded Payers Encounter Date Sequence Insurance Name Policy Number Policy Cruz Covered Member ID Cruz Member ID Guarantor Name 11/07/2024 1 [place] [employer] Gely Roldan Fab [id number] Gely Sanon 11/07/2024 2 [place] Gely Roldan Fab [id number] Gely Sanon 12/03/2024 1 [place] [employer] Gely Roldan Fab [id number] Gely Sanon 12/03/2024 2 [place] Gely Roldan Fab [id number] Gely Sanon 01/02/2025 1 [place] [employer] Gely Roldan Fab [id number] Gely Sanon 01/02/2025 2 [place] Gely Roldan Fab [id number] Gely Sanon 01/30/2025 1 [place] [employer] Gely Roldan Fab [id number] Gely Sanon 01/30/2025 2 [place] Gely Roldan Fab [id number] Gely Sanon 02/06/2025 1 [place] [employer] Gely Roldan Fab [id number] Gely Sanon 02/06/2025 2 [place] Gely Roldan Fab [id number] Gely Sanon Notes Date Note Type Note Provider Name and Address Organization Details Recorded Time 5 text/htm l doing the same still coughing no major issue her back is still a problem in the cold weather has been coughing since getting flu and covid shotno fever but not feeling wellwaking up in night with cough as well Harish Infante, DO [address] [facility], [place], [address], [facility] 11/07/2024 11:23:26 5 text/htm l Care Management - HypertensionReported bypatient.Self Care:not under emotional stress Severity:symptoms are improving; does not interfere with daily activities Associated Symptoms:no dizziness; no lightheadedness; no chest pain; no shortness of breath; no palpitations; no edema; no calf muscle cramps; no blurred vision; no confusion; no headaches; no fatigue here for rechk and is doing ok overallno major issues other than the weather is bothering her joints home bp readings are running between 130-150 sys 70 diastopulse in 50's doing the same still coughing no major issue her back is still a problem in the cold weather has been coughing since getting flu and covid shotno fever but not feeling wellwaking up in night with cough as well Harish Infante, DO [address] [facility], [place], [address], [facility] 02/06/2025 14:25:35 OBGyn Episode No OBEpisode recorded.
[2025-02-06 18:04] LABS: MANUAL DIFF FLAG NO
[2025-02-06 18:33] LABS: Basophils Percent Auto 0.2 % (0-2); Eosinophils Absolute Auto 0.1 X10*3/uL (0.0-0.4); Eosinophils Percent Auto 1.8 % (0-4); Hematocrit 41.9 % (37.0-47.0); Hemoglobin 13.7 g/dl (12.0-16.0); Imm Gran Abs Auto 0.02 X10*3/uL (0.00-0.03); Imm Gran Pct Auto 0.4 % (0.0-0.4); Immature Retic Fraction 12.1 % (3.0-15.9); Lymphocytes Absolute Auto 1.1 X10*3/uL (1.2-4.9); Lymphocytes Percent Auto 22.6 % (20-40); Mean Corpuscular HGB Conc 32.7 g/dl (31.0-35.0); Mean Corpuscular Hemoglobin 34.8 pg (27.0-33.0); Mean Corpuscular Volume 106.3 fL (80.0-98.0); Mean Platelet Volume 12.3 fL (9.4-12.3); Monocytes Absolute Auto 0.3 X10*3/uL (0.1-1.2); Neutrophils Absolute Auto 3.4 x10*3/uL (2.0-8.3); Platelet Count 123 X10*3/uL (160-400); Red Blood Count 3.94 X10*6/uL (4.20-5.50); Red Cell Distribution Width 11.9 % (11.0-16.0); Retic HGB Equivalent 37.4 pg (30.0-35.0); Reticulocyte Percent 1.3 % (0.5-1.8); Reticulocytes Absolute 0.051 X10*6/uL (0.026-0.095)
[2025-02-06 18:43] LABS: Alanine Aminotransferase 11 U/L (0-31); Albumin Level 4.1 g/dL (3.5-5.0); Alkaline Phosphatase 69 U/L (39-117); Anion Gap 8 (12-20); Aspartate Amino Transferase 26 U/L (5-31); Bilirubin Total 0.8 mg/dL (0.0-1.0); Blood Urea Nitrogen 22 mg/dL (9-16); Calcium 9.2 mg/dL (8.4-10.2); Carbon Dioxide 30 mmol/L (22-29); Chloride 107 mmol/L (96-108); Estimated Glomerular Filt Rate 38; Glucose Random 86 mg/dL (60-115); Iron 137 mcg/dL (30-160); Percent Iron Saturation 58 % (15-50); Potassium 4.2 mmol/L (3.3-5.1); Sodium 141 mmol/L (135-145); Total Iron Binding Capacity 236 mcg/dL (228-428); Total Protein 6.2 g/dL (6.5-8.0); Unsaturated Iron Binding 99 ug/dL
[2025-02-06 19:03] LABS: Folate 7.4 ng/mL (> or = 4.0); Vitamin B12 1124 pg/mL (200-900)
[2025-02-06 19:09] LABS: Ferritin 198 ng/mL (10-250); Vitamin D 25-OH Total 54.4 ng/mL (>30)
== END 2025-02-06 14:27 | disposition home or self-care (01) ==
LOC: HO.MANLDS 14:26
PROVIDERS: Visit Provider Internal Medicine
DX: I10 Essential (primary) hypertension (principal); E53.8 Deficiency of other specified B group vitamins; M85.80 Other specified disorders of bone density and structure, unspecified site
CPT/HCPCS: 36415; 80053; 82306; 82607; 82728; 82746; 83540; 85025; 85045